=== PATIENT | female | born 1945 | race Caucasian/White ===

== ENCOUNTER 2018-01-17 16:15 | Inpatient (IN) | payer SELFPAY ==
--- NOTE | 2018-01-17 17:07 | CPEKG ---
Heart Rate: 90 RR Interval: 667 P-R Interval: 172 QRSD Interval: 82 QT Interval: 368 QTC Interval: 451 P [place]: 73 QRS [place]: -16 T Wave [place]: 66 EKG Severity - ABNORMAL ECG - EKG Impression: SINUS RHYTHM EKG Impression: LEFT VENTRICULAR HYPERTROPHY EKG Impression: BORDERLINE INFERIOR Q WAVES Electronically Signed By: Colette Self 17-Jan-2018 21:20:22
[2018-01-17] MEDS ORDERED: methylPREDNISolone SOD SUCC 125 MG/2 ML VIAL IVP ONE (17:35)
[2018-01-17] MEDS ORDERED: IPRATROPIUM/ALBUTEROL 3 ML DEYVIAL IH ONE (17:35)
--- NOTE | 2018-01-17 17:37 | EDPHY ---
H & P Stated Complaint: SOB Time Seen by Provider: 01/17/18 16:48 HPI/ROS: CHIEF COMPLAINT: Shortness of breath HISTORY OF PRESENT ILLNESS: 72-year-old female with COPD presents with shortness of breath. She traveled from [facility] to [place] 5 days ago. Since arrival, she has had shortness of breath with any exertion. She feels okay when she is at rest, but if she gets up to walk, she is very short of breath. Onset of a productive cough 4 days ago, associated with fever and nasal congestion. No prior history of pneumonia. She also has increased swelling of the left lower extremity over the last several days. REVIEW OF SYSTEMS: complete 10 point ROS negative except at noted in the HPI - Personal History Current Tetanus/Diphtheria Vaccine: Unsure Current Tetanus Diphtheria and Acellular Pertussis (TDAP): Unsure - Medical/Surgical History Hx Asthma: No Hx Chronic Respiratory Disease: Yes Hx Diabetes: No Hx Cardiac Disease: No Hx Renal Disease: No Hx Cirrhosis: No Hx Alcoholism: No Hx HIV/AIDS: No Hx Splenectomy or Spleen Trauma: No Other PMH: COPD, HTN, neuropathy, left lower extremity swelling - Social History Smoking Status: Never smoked Alcohol Use: Sober Drug Use: None Additional Social History: [place] - Physical Exam Exam: General Appearance: Alert, pleasant Eyes: Pupils equal and round, no conjunctival pallor ENT, Mouth: Mucous membranes moist Neck: Normal inspection Respiratory: Decreased breath sounds at the left base Cardiovascular: Regular rate and rhythm Gastrointestinal: Abdomen is soft and nontender Neurological: A&O, nonfocal exam Skin: Warm and dry, no rash Extremities: Left lower extremity edema, no tenderness Psychiatric: Mood and affect normal Constitutional: Initial Vital Signs Temperature (C) 36.7 C 01/17/18 16:30 Heart Rate 96 01/17/18 16:30 Respiratory Rate 24 H 01/17/18 16:30 Blood Pressure 147/89 H 01/17/18 16:30 O2 Sat (%) 78 L 01/17/18 16:30 O2 Delivery Mode Nasal Cannula O2 (L/minute) 4 Allergies/Adverse Reactions: biseptol Allergy (Uncoded 01/17/18 16:29) Home Medications: Medication Instructions Recorded FOSINOPRIL/HYDROCHLOROTHIAZIDE 1 each PO DAILY 01/17/18 [Monopril HCT 20/12.5] Formoterol Fumarate Dihydrate 1 inh IH BID 01/17/18 12mcg/ 60 Puffs Medical Decision Making - Diagnostics EKG Interpretation: EKG interpreted by me reveals normal sinus rhythm, rate 90, no ST or T segment changes. Imaging Results: Imaging Impressions Chest X-Ray 01/17/18 17:09 Impression: Patchy left lower lobe infiltrate, possible pneumonia. Underlying emphysema.. Extremity Venous Study 01/17/18 17:35 Impression: No deep venous thrombosis left leg. Results called to Dr. Self at 6:45 PM ED Course/Re-evaluation: This patient with COPD presents with hypoxia, URI symptoms and fever, concerning for pneumonia. She does not meet SIRS criteria and initial lactate is normal. Chest x-ray reveals a left lower lobe infiltrate. Blood cultures were drawn and Levaquin 750 mg IV given. Also concerning is the possibility of pulmonary embolism, given left lower extremity swelling and significant hypoxia. Left lower extremity ultrasound is normal and D-dimer is normal. Given URI symptoms, infiltrate seen on chest x-ray, normal D-dimer and normal left lower extremity ultrasound, I feel that I can safely exclude pulmonary embolism as diagnosis. Will admit for pneumonia. The hospitalist service was consulted for admission. Differential Diagnosis: Differential diagnosis includes though it is not limited to pneumonia, pneumothorax, pulmonary embolism, aortic dissection, pericarditis, acute coronary syndrome. - Data Points Laboratory Results: Laboratory Results 01/17/18 17:15 01/17/18 17:15 01/17/18 01/17/18 01/17/18 17:31 17:15 17:15 WBC RBC Hgb Hct MCV MCH MCHC RDW Plt Count MPV Neut % (Auto) Lymph % (Auto) [place] % (Auto) Eos % (Auto) Baso % (Auto) Nucleat RBC Rel Count Absolute Neuts (auto) Absolute Lymphs (auto) Absolute Monos (auto) Absolute Eos (auto) Absolute Basos (auto) Absolute Nucleated RBC Immature Gran % Immature Gran # D-Dimer 0.48 ug/mLFEU ug/mLFEU (0.00-0.50) VBG Lactic Acid 0.8 mmol/L mmol/L (0.7-2.1) Sodium 137 mEq/L mEq/L (135-145) Potassium 4.5 mEq/L mEq/L (3.3-5.0) Chloride 100 mEq/L mEq/L (97-110) Carbon Dioxide 23 mEq/l mEq/l (22-31) Anion Gap 14 mEq/L mEq/L (8-16) BUN 16 mg/dL mg/dL (7-23) Creatinine 0.6 mg/dL mg/dL (0.6-1.0) Estimated GFR > 60 Glucose 125 mg/dL H mg/dL (70-100) [place] 9.6 mg/dL mg/dL (8.5-10.4) NT-Pro-B Natriuret Pep 274 pg/mL H pg/mL (0-125) 01/17/18 17:15 WBC 11.23 10^3/uL H 10^3/uL (3.80-9.50) RBC 4.73 10^6/uL 10^6/uL (4.18-5.33) Hgb 13.9 g/dL g/dL (12.6-16.3) Hct 42.0 % % (38.0-47.0) MCV 88.8 fL fL (81.5-99.8) MCH 29.4 pg pg (27.9-34.1) MCHC 33.1 g/dL g/dL (32.4-36.7) RDW 12.9 % % (11.5-15.2) Plt Count 233 10^3/uL 10^3/uL (150-400) MPV 10.8 fL fL (8.7-11.7) Neut % (Auto) 82.3 % H % (39.3-74.2) Lymph % (Auto) 8.8 % L % (15.0-45.0) [place] % (Auto) 8.0 % % (4.5-13.0) Eos % (Auto) 0.4 % L % (0.6-7.6) Baso % (Auto) 0.1 % L % (0.3-1.7) Nucleat RBC Rel Count 0.0 % % (0.0-0.2) Absolute Neuts (auto) 9.24 10^3/uL H 10^3/uL (1.70-6.50) Absolute Lymphs (auto) 0.99 10^3/uL L 10^3/uL (1.00-3.00) Absolute Monos (auto) 0.90 10^3/uL H 10^3/uL (0.30-0.80) Absolute Eos (auto) 0.04 10^3/uL 10^3/uL (0.03-0.40) Absolute Basos (auto) 0.01 10^3/uL L 10^3/uL (0.02-0.10) Absolute Nucleated RBC 0.00 10^3/uL 10^3/uL (0-0.01) Immature Gran % 0.4 % % (0.0-1.1) Immature Gran # 0.05 10^3/uL 10^3/uL (0.00-0.10) D-Dimer VBG Lactic Acid Sodium Potassium Chloride Carbon Dioxide Anion Gap BUN Creatinine Estimated GFR Glucose [place] NT-Pro-B Natriuret Pep Microbiology Results: MICROBIOLOGY 01/17/18 17:45 Nasal, Sinus - Swab Respiratory Panel (PCR) - Final Respiratory Syncytial Virus Medications Given: Discontinued Medications Albuterol/Ipratropium (Duoneb) 3 ml IH EDNOW ONE Stop: 01/17/18 17:36 Last Admin: 01/17/18 17:59 Dose: 3 ml Levofloxacin/Dextrose (Levaquin 750 Mg (Premix)) 150 mls @ 100 mls/hr IV EDNOW ONE PRN Reason: Protocol Stop: 01/17/18 20:16 Last Admin: 01/17/18 18:57 Dose: 150 mls Methylprednisolone Sodium Succinate (Solu-Medrol) 125 mg IVP EDNOW ONE Stop: 01/17/18 17:36 Last Admin: 01/17/18 18:00 Dose: 125 mg Departure - Departure Disposition: [facility] Inpatient Acute Clinical Impression: Pneumonia Qualifiers: Pneumonia type: due to unspecified organism Laterality: left Lung location: lower lobe of lung Qualified Code(s): J18.1 - Lobar pneumonia, unspecified organism Respiratory failure with hypoxia Qualifiers: Chronicity: acute Qualified Code(s): J96.01 - Acute respiratory failure with hypoxia Condition: Fair
[2018-01-17 17:41] LABS: PLATELET COUNT 233 10^3/uL (150-400)
[2018-01-17] MEDS ORDERED: ACETAMINOPHEN 325 MG TAB PO PRN (19:39)
[2018-01-17] MEDS ORDERED: ALBUTEROL 3 ML DEYVIAL IH PRN (19:39)
[2018-01-17] MEDS ORDERED: ONDANSETRON 4 MG/2 ML VIAL IVP PRN (19:39)
[2018-01-17] MEDS ORDERED: ONDANSETRON DISINTEGRATING 4 MG TAB PO PRN (19:39)
--- NOTE | 2018-01-17 20:29 | GHP ---
[f rep st] HISTORY AND PHYSICAL DATE OF ADMISSION: 01/17/2018 CHIEF COMPLAINT: Shortness of breath. HISTORY OF PRESENT ILLNESS: This is a 72-year-old female who [facility] accompanied by her son who is translating for her. She has been short of breath for some time, has seen a nursing program chair in the [place]. She does have a history of COPD diagnosed by spirometry . This got worse over the past few days. Her onabpqmo-sl-ffo bought a pulse ox monitor. It was abel aceves in the 70s to 80s. Because of this, they brought her in. She has been coughing and wheezing ov er the past few days. She has had some productive sputum. She has had some low-grade fevers at home as well. PAST MEDICAL/SURGICAL HISTORY: 1. COPD. 2. Hypertension. MEDICATIONS: Please see medication reconciliation. ALLERGIES: Biseptol. FAMILY HISTORY: Reviewed and noncontributory. SOCIAL HISTORY: She does not drink or smoke. She is visiting her son. She is going to be here [facility] January 31, from the [facility] [place]. REVIEW OF SYSTEMS: A 10-point review of systems is conducted and is negative, except per HPI. PHYSICAL EXAM: VITAL SIGNS: Blood pressure 132/84, heart rate 93, respiration rate 24, initially sa turating 78% on room air. Temperature 36.7. GENERAL: The patient is a very pleasant female who is resting comfortably, in no acute distress. HEENT: Shows her to be normocephalic, atraumatic. CARDI OVASCULAR: Regular rate and rhythm. No murmurs, rubs, or gallops. PULMONARY: Exam shows diffuse e xpiratory wheezes. She has bilateral basilar rales. ABDOMEN: Soft, nontender, nondistended. SKIN: Shows no rash. : No Reddy. NEUROLOGIC: Shows her to be alert and oriented x3. She is moving all extremities. PSYCHIATRIC: Shows normal mood and affect. LABS: White count is 11. D-dimer is 0.48. Lactate is 0.8. Glucose is 125. BNP is 274. DATA: 1. I discussed this with Dr. Stanley. Will admit to med/surg. 2. I reviewed her extremity venous study. It is negative for DVT. 3. I personally viewed and interpreted her chest x-ray. This shows a left lower lobe opacity consis tent with pneumonia. 4. I personally viewed and interpreted her EKG. This shows sinus rhythm. IMPRESSION AND PLAN: 1. Community-acquired pneumonia with white count. Symptoms consistent with this, and an infiltrate on x-ray. We will treat her with Levaquin. We will recheck an x-ray in the morning to see if the pn eumonia is more prominent. 2. Hypoxia: Suspect that there is a chronic component to this. She has been quite hypoxic here. Alejandra colón will continue oxygen supplementation. This is likely due to pneumonia as well as COPD. She may ne ed oxygen on discharge. 3. Chronic obstructive pulmonary disease: She has an acute exacerbation with wheezes. I will give her prednisone as well as inhalers. 4. Hypertension: Will continue her antihypertensives when these are reconciled. 5. Code status: She would like to be full code. 6. Venous thromboembolism risk is high. I will give her Lovenox. 7. Left lower extremity edema: Ultrasound of her leg was negative for DVT. 8. We will also check a respiratory pathogen PCR. /[id number]/MODL
[2018-01-18 20:49] LABS: PLATELET COUNT 229 10^3/uL (150-400)
[2018-01-19] MEDS: IPRATROPIUM/ALBUTEROL 3 ML DEYVIAL IH SCH ×4 (04:55→11:16)
[2018-01-19] MEDS: [UNRECOGNIZED DRUG - OTHER] IH SCH ×3 (04:56→09:15)
[2018-01-19] MEDS: ENOXAPARIN 40 MG/0.4 ML SYR SC SCH ×2 (05:43→10:24)
[2018-01-19] MEDS: LISINOPRIL/HCTZ 20/12.5MG 1 EA TAB PO SCH ×2 (05:44→10:24)
[2018-01-19] MEDS: predniSONE 20 MG TAB PO SCH ×2 (05:44→10:25)
[2018-01-19 07:22] VITALS: BP 114/66
--- NOTE | 2018-01-19 11:21 | PDHOMEO2F ---
Home Oxygen Face to Face Home Orders: I certify that a physician or a nurse practitioner or physician's telecom assistant has had a [id number] encounter with this patient on the date of this order due to the diagnosis listed, which relates to the primary reason the patient requires home oxygen. Alternative treatments have been tried, or considered, and deemed ineffective. It is anticipated that supplemental oxygen will result in improvement with treatment. Home oxygen qualifying diagnosis: COPD SpO2 on room air (%): 77% Frequency of home oxygen needed: continuous Home oxygen liters per minute: 2L Home oxygen delivery device: nasal cannula Concentrator: Yes E-tanks for mobility and back up: Yes If ordering portable O2, is the patient mobile in the home?: Yes I certify that, based on these findings, the home oxygen is medically necessary for this patient for the following length of time. Length of time home oxygen needed: 1 week
--- NOTE | 2018-01-19 11:43 | ASMTCMCOM ---
CM Note CM Note Notes: Pt is visiting son from [facility], will need O2 at dc, RT will discuss cost with pt's son, she has no travelers insurance. Otherwise will dc w/support of son when medically stable. CM available for any changes. DC Plan: Independent + Home O2 Date Signed: 01/19/2018 11:42 AM Electronically Signed By:Maureen Clay RN
--- NOTE | 2018-01-19 14:59 | ASMTCASEMG ---
[facility] Case Management CM Assessment Patient Name: EMMANUEL SCALES Rpt#: [id number] MR#: [id number] Attending: Issa Armijo MD Adm Date: 01/17/18 Living Arrangements What is your living Answers: Alone arrangement? Who do you live with? Type Of Residence What kind of residence do Answers: House you live in? Discharge Plan Comments Coordination Status Comments Notes: CM spoke to GRACE Guerrero regarding d/c POC. Pt is a 72 y/o maltese speaking only here visiting her son that lives in [place]. Pt was admitted for pneumonia. Pt will most likely d/c without any needs given that she does not have any insurance. CM available for d/c needs. Plan: Independent Date Signed: 01/18/2018 09:49 AM Electronically Signed By: SHARONDA Tapia
--- NOTE | 2018-01-19 16:09 | PDMN ---
Medical Necessity Medical necessity: MCG [id number] ongoing hypoxia with O2 req sats of 78% RA, wheezing,. original OBS order 01/17/18 @ 18:59 [facility] downtime, change of status 01/18/18 @ 3220
--- NOTE | 2018-01-19 16:33 | GDS ---
[ rep ] DISCHARGE SUMMARY DISCHARGE DIAGNOSES: 1. Chronic obstructive pulmonary disease exacerbation. 2. Respiratory syncytial virus infection. 3. Viral pneumonia. 4. Hypertension. HISTORY: Elizabeth is a 72-year-old female, visiting her son from the [facility] [place]. She has a known hi story of COPD. She was seen by her physician prior to traveling and cleared to come to the [facility]. She presents to the hospital with shortness of breath. Respiratory PCR came back positive for respiratory syncytial virus. I do think she has a viral pneumonia with subsequent COPD exacerbation . She was treated with prednisone and nebulizers. I have discontinued antibiotics as I do think her process is all viral. She is quite stable and feeling well and ready to go home, but does still req uire oxygen. We were able to arrange for home oxygen. She will discharge on 2 L. Incidentally note d is a negative D-dimer, so I do not think pulmonary embolus or DVT is part of her presentation. DISCHARGE MEDICATIONS: Please see computer record for full detailed list. NEW MEDICATIONS: 1. Prednisone 40 mg p.o. daily to complete a 5-day burst. 2. Combivent 1 puff 4 times a day as needed for wheezing. This will be in addition to her formotero l inhaler twice a day she takes chronically. ADDITIONAL DISCHARGE INSTRUCTIONS: 1. Continue to follow pulse oximeter which she already has and wear oxygen to maintain sats 90% or a [place]. 2. When she is improved and off oxygen, okay to travel back to [facility] and follow up with her previous physician. Greater than 30 minutes' time spent arranging this discharge. Patient seen and examined by me on the day of discharge. /[id number]/MODL
== END 2018-01-19 16:20 | disposition home or self-care (01) | DRG 190 ==
LOC: F3E 20:11
PROVIDERS: ADMIT Student in an Organized Health Care Education/Training Program; ATTEND Internal Medicine
DX: J44.1 Chronic obstructive pulmonary disease with (acute) exacerbation (principal); J44.0 Chronic obstructive pulmonary disease with (acute) lower respiratory infection; J12.9 Viral pneumonia, unspecified; I10 Essential (primary) hypertension; B97.4 Respiratory syncytial virus as the cause of diseases classified elsewhere
CPT/HCPCS: 96374; 97161-GP; 97165-GO; G8987-GO-CI; G8988-GO-CI; G8989-GO-CI; J1650; J1956; J2930; J7512